=== PATIENT | male | born 1955 ===

== ENCOUNTER 2018-11-13 17:59 | Emergency (ER) | payer OTHER ==
[~2018-11-13] VITALS: Ht 180.3 cm; Wt 90.7 kg
[2018-11-13] MEDS ORDERED: LEVSOD112 PO (18:13)
[2018-11-13] MEDS ORDERED: XARELTO15 MG PO (18:13)
== END 2018-11-13 18:40 | disposition left against medical advice (07) ==
LOC: ER 17:59
DX: S01.01XA Laceration without foreign body of scalp, initial encounter (principal); F10.120 Alcohol abuse with intoxication, uncomplicated; Z79.01 Long term (current) use of anticoagulants; Y00.XXXA Assault by blunt object, initial encounter
CPT/HCPCS: 12001; 99284-25